=== PATIENT | female | born 1995 | race American Indian/Alaskan Native ===

== ENCOUNTER 2017-01-24 11:18 | Emergency (ER) | payer MEDICAID, OTHER ==
[2017-01-24 11:28] VITALS: BMI 27.4
[2017-01-24 11:40] VITALS: RESP 16
[2017-01-24] MEDS ORDERED: Sodium Chloride 0.9% 1,000 ML IV STA (11:44)
--- NOTE | 2017-01-24 11:53 | ED PDOC ---
Arrival/HPI - General Historian: Patient - History of Present Illness Time/Duration: 4-6 hours Symptom Onset: Sudden Symptom Course: Worsening Quality: Other (soreness) Severity Level: 9 Activities at Onset: Eating <Octavio Rodriguez - Last Filed: 01/24/17 12:53> <Brad Burgess DO - Last Filed: 01/24/17 19:06> - General Chief Complaint: GI Problem Time Seen by Provider: 01/24/17 11:20 - History of Present Illness Narrative History of Present Illness (Text): 01/24/17 11:49 This is a 22 yo female, [id number], last menstrual period sometime in November, with no significant past medical or surgical hx, presenting to ER with chief complaint of abdominal pain. Patient found out she was roughly 2 weeks ago. Patient has been vomiting for about 3 days now. Patient woke this morning about 730 am and vomited 6 times. It was yellowish in appearance, non bloody, non bilious. Shortly after, patient began experiencing diffuse abdominal pain. Describes sensation as "soreness." Never happened before. 9/10 in severity, getting worse, so decided to come to Emergency room Denies fevers, chills, vaginal symptoms, urinary symptoms. Denies constipation and diarrhea. Has had decreased intake past few days. Does report some dizziness following the vomiting 01/24/17 12:53 (Octavio Rodriguez) Past Medical History - Provider Review Nursing Documentation Reviewed: Yes - Travel History Have you recently traveled outside [place] w/in the past 3 mons?: No - Past History Past History: No Previous - Infectious Disease Hx of Infectious Diseases: None - Tetanus Immunization Tetanus Immunization: Unknown - Reproductive Menopause: No - Past Medical History Past Medical History: No Previous - Psychiatric Hx Substance Use: No - Anesthesia Hx Anesthesia: No - Suicidal Assessment Feels Threatened In Home Enviroment: No <Octavio Rodriguez - Last Filed: 01/24/17 12:53> Family/Social History - Physician Review Nursing Documentation Reviewed: Yes Family/Social History: No Known Family HX Smoking Status: Former Smoker Hx Alcohol Use: No Hx Substance Use: No <Octavio Rodriguez - Last Filed: 01/24/17 12:53> Allergies/Home Meds <Octavio Rodriguez - Last Filed: 01/24/17 12:53> <Jenifer ROSSBrad - Last Filed: 01/24/17 19:06> Allergies/Adverse Reactions: Allergies strawberry Allergy (Verified 05/11/15 00:21) RASH Home Medications: Home Meds Medication Instructions Recorded Confirmed No Known Home Med 01/24/17 01/24/17 Review of Systems - Physician Review All systems were reviewed & negative as marked: Yes - Review of Systems Constitutional: absent: Fevers, Night Sweats Respiratory: absent: Cough, Wheezing Cardiovascular: absent: Chest Pain, Palpitations Gastrointestinal: Abdominal Pain, Nausea, Vomiting. absent: Constipation, Diarrhea Genitourinary Female: absent: Dysuria, Frequency, Hematuria, Vaginal Bleeding Skin: absent: Rash, Pruritis Neurological: Dizziness. absent: Headache Psychiatric: absent: Anxiety, Depression <Octavio Rodriguez - Last Filed: 01/24/17 12:53> Physical Exam Vital Signs Reviewed: Yes - Systems Exam Head: Present: Atraumatic, Normocephalic Extroacular Muscles: Present: EOMI Neck: Present: Normal Range of Motion Respiratory/Chest: Present: Clear to Auscultation. No: Accessory Muscle Use Cardiovascular: Present: Normal S1, S2 Abdomen: No: Tenderness, Peritoneal Signs Upper Extremity: Present: Normal Inspection Lower Extremity: Present: Normal Inspection Neurological: Present: CN II-XII Intact, Speech Normal Skin: Present: Warm, Dry Psychiatric: Present: Alert, Oriented x 3, Normal Insight, Normal Concentration <Octavio Rodriguez - Last Filed: 01/24/17 12:53> Vital Signs Temp Pulse Resp BP Pulse Ox 01/24/17 15:19 98.0 F 68 16 141/71 99 01/24/17 11:35 97.9 F 80 16 100 - Lab Interpretations Lab Results: 01/24/17 12:20 01/24/17 12:20 Lab Results 01/24/17 14:40: Beta HCG, Quant [id number] H 01/24/17 12:35: Urine Color Yellow, Urine Appearance Sl cloudy, Urine pH 6.0, Ur Specific [place] 1.015, Urine Protein Trace H, Urine Glucose (UA) Negative, Urine Ketones >=80, Urine Blood Negative, Urine Nitrate Negative, Urine Bilirubin Negative, Urine Urobilinogen 0.2, Ur Leukocyte Esterase Small H, Urine RBC Negative, Urine WBC 1 - 3, Ur Epithelial Cells 6 - 8, Urine Bacteria Few, Urine Other Mucus 01/24/17 12:20: Sodium 135, Potassium 4.0, Chloride 100, Carbon Dioxide 23, Anion Gap 16, BUN 9, Creatinine 0.7, Est GFR ( Amer) > 60, Est GFR (Non- Af Amer) > 60, Random Glucose 84, Calcium 10.4, Total Bilirubin 1.4 H, AST 21, ALT 36, Alkaline Phosphatase 65, Total Protein 9.0 H, Albumin 4.5, Globulin 4.5 , Albumin/Globulin Ratio 1.0 L, Lipase 216 01/24/17 12:20: WBC 5.8 D, RBC 4.56, Hgb 13.0, Hct 37.6, MCV 82.5, MCH 28.5, MCHC 34.6, RDW 14.3, Plt Count 319, MPV 9.5, Gran % 73.9 H, Lymph % (Auto) 20.7 L, [place] % (Auto) 5.2, Eos % (Auto) 0.2 L, Baso % (Auto) 0.0, Gran # 4.29, Lymph # 1.2, [place] # 0.3, Eos # 0.0, Baso # 0.00 - RAD Interpretation Radiology Orders: 01/24/17 11:45 OB TRANSVAGINAL [US] Stat 01/24/17 11:46 ABDOMEN COMPLETE [US] Stat - Medication Orders Current Medication Orders: Discontinued Medications Sodium Chloride (Sodium Chloride 0.9%) 1,000 mls @ 1,000 mls/hr IV .Q1H STA Stop: 01/24/17 12:43 Last Admin: 01/24/17 12:17 Dose: 1,000 mls/hr eMAR Start Stop Document 01/24/17 12:17 RG (Rec: 01/24/17 12:17 RG [facility] [id number]) Intravenous Solution Start Date 01/24/17 Start Time 12:17 Ondansetron HCl (Zofran Inj) 4 mg IVP STAT STA Stop: 01/24/17 12:17 Last Admin: 01/24/17 12:32 Dose: 4 mg IVP Administration Document 01/24/17 12:32 RG (Rec: 01/24/17 12:32 RG [facility] [id number] Charges for Administration # of IVP Administrations 1 - PA / [facility] / Resident Statement / has reviewed & agrees with the documentation as recorded. MARY has examined the patient and agrees with the treatment plan. <Brad Burgess DO - Last Filed: 01/24/17 19:06> Disposition/Present on Arrival - Present on Arrival History of DVT/PE: No History of Uncontrolled Diabetes: No Urinary Catheter: No History of Decub. Ulcer: No History Surgical Site Infection Following: None <Octavio Rodriguez - Last Filed: 01/24/17 12:53> - Present on Arrival Any Indicators Present on Arrival: No - Disposition Have Diagnosis and Disposition been Completed?: Yes Disposition Time: 14:00 <Brad Burgess DO - Last Filed: 01/24/17 19:06> - Disposition Diagnosis: 10 weeks gestation of Disposition: HOME/ ROUTINE Condition: GOOD Discharge Instructions (ExitCare): at 7 to 10 Weeks (ED) Additional Instructions: Thank you for letting us take care of you today. The emergency medical care you received today was directed at your acute symptoms. If you were prescribed any medication, please fill it and take as directed. It may take several days for your symptoms to resolve. Return to the Emergency Department if your symptoms worsen, do not improve, or if you have any other problems. Please contact your doctor or call one of the physicians/clinics you have been referred to that are listed on the Patient Visit Information form that is included in your discharge packet. Bring any paperwork you were given at discharge with you along with any medications you are taking to your follow up visit. Our treatment cannot replace ongoing medical care by a primary care provider (PCP) outside of the emergency department. Thank you for allowing the [facility] team to be part of your care today. Follow up with your [facility] doctor in 5-7 days for re-evaluation and further management. Referrals: PCP,NO [Primary Care Provider] - Follow up with primary
[2017-01-24 12:28] LABS: EOS % 0.2 % (1.5-5.0); GRAN # 4.29 (1.4-6.5); GRAN % 73.9 % (50.0-68.0); HEMATOCRIT 37.6 % (36.0-48.0); LYMPH # 1.2 (1.2-3.4); LYMPH % 20.7 % (22.0-35.0); MEAN CELL VOLUME 82.5 fl (80.0-105.0); MEAN CORPUSCULAR HEMOGLOBIN 28.5 pg (25.0-35.0); MEAN CORPUSCULAR HGB CONC 34.6 g/dl (31.0-37.0); MEAN PLATELET VOLUME 9.5 fl (7.0-11.0); MONO # 0.3 (0.1-0.6); MONO % 5.2 % (1.0-6.0); RED CELL DISTRIBUTION WIDTH 14.3 % (11.5-14.5); WHITE BLOOD COUNT 5.8 10^3/ul (4.5-11.0)
[2017-01-24 12:38] LABS: ALKALINE PHOSPHATASE 65 U/L (38-126); ALT/SGPT 36 U/L (7-56); AST/SGOT 21 U/L (14-36); BILIRUBIN,TOTAL 1.4 mg/dL (0.2-1.3); BLOOD UREA NITROGEN 9 mg/dL (7-21); CALCIUM 10.4 mg/dL (8.4-10.5); CARBON DIOXIDE 23 mmol/L (21-33); CHLORIDE 100 mmol/L (98-107); GFR AFRICAN-AMERICAN > 60; GLUCOSE,RANDOM 84 mg/dL (70-110); LIPASE 216 U/L (23-300); SODIUM 135 mmol/L (132-148)
[2017-01-24 13:30] LABS: URINE BILIRUBIN NEGATIVE (NEGATIVE); URINE BLOOD NEGATIVE (NEGATIVE); URINE GLUCOSE (UA) NEGATIVE (NEGATIVE); URINE KETONE >=80 mg/dL (NEGATIVE); URINE LEUKOCYTE ESTERASE SMALL Leu/uL (NEGATIVE); URINE PROTEIN TRACE mg/dL (<30 mg/dL); URINE UROBILINOGEN 0.2 E.U./dL (<1 E.U./dL)
[2017-01-24 13:33] LABS: URINE APPEARANCE SL CLOUDY (CLEAR); URINE COLOR YELLOW (YELLOW)
[2017-01-24 13:55] LABS: URINE BACTERIA FEW (NEG); URINE RBC NEGATIVE /hpf (0-2)
--- NOTE | 2017-01-24 14:11 | US ---
HISTORY: diffuse abdominal pain COMPARISON: None. TECHNIQUE: Sonographic evaluation of the abdomen. FINDINGS: LIVER: Measures 14.7 cm. Normal echogenicity of the liver parenchyma. No mass. No intrahepatic bile duct dilatation. GALLBLADDER: Unremarkable. No gallstones. COMMON BILE DUCT: Measures 5.0 mm. No stones. No dilatation. PANCREAS: Pancreas head is obscured by overlying duodenal gas with remainder unremarkable appearing. RIGHT KIDNEY: Measures 9.6cm. Normal echogenicity. No calculus, mass, or hydronephrosis. LEFT KIDNEY: Measures 8.9cm. Normal echogenicity. No calculus, mass, or hydronephrosis. Limitations on imaging the left kidney are due to body habitus. SPLEEN: Normal in size and contour. No mass. AORTA: No aneurysmal dilatation. IVC: Unremarkable. OTHER FINDINGS: None. IMPRESSION: The head of the pancreas is obscured by overlying duodenal gas with remainder unremarkable diffusely. Further, imaging of the left kidney is somewhat compromised by body habitus. No definitive pathology is appreciated otherwise.
--- NOTE | 2017-01-24 14:15 | US ---
HISTORY: diffuse abdominal pain COMPARISON: None available. TECHNIQUE: Transabdominal and transvaginal pelvic ultrasound was performed with longitudinal and transverse images submitted for interpretation. FINDINGS: Last menstrual period is unknown. UTERUS: Measures 9.1 x 7.9 x 8.0 cm. The uterus is mildly enlarged appearing anteverted with no discrete myometrial lesion appreciated. Intrauterine gestation is identified as discussed below. ENDOMETRIUM: Within the endometrial cavity is a gestational sac with pole, and attic membrane and yolk sac identified. cardiac activity is identified at 172 beats per minute indicating viability. Mean crown-rump length measurement is 3.4 cm corresponding to an average ultrasonic age of 10 weeks 2 days. Yolk sac measures 0.4 cm inner lumen. The decidual reaction appears diffusely unremarkable without definitive hemorrhage appreciated related. CERVIX: No cervical abnormality identified. RIGHT OVARY: Measures 3.0 x 1.9 x 3.1 cm. No solid mass. Normal flow. LEFT OVARY: Measures 2.4 x 2.1 x 2.3 cm. No solid mass. Normal flow. FREE FLUID: No significant free fluid noted. OTHER FINDINGS: None. IMPRESSION: Single viable intrauterine gestation is identified with an average ultrasonic age of 10 weeks 2 days and cardiac activity registering 172 beats per minute. No definitive hemorrhage related to the at this time. No direct ultrasound sign of ovarian torsion appreciable.
[2017-01-24 15:21] VITALS: BP 141/71; PULSE 68; TEMP 98; O2SAT 99
== END 2017-01-24 15:22 | disposition home or self-care (01) ==
LOC: ED 11:18
DX: O26.891 Other specified pregnancy related conditions, first trimester (principal); Z3A.10 10 weeks gestation of pregnancy
CPT/HCPCS: 76700; 76817; 80053; 81001; 83690; 84702; 85025; 87086; 96374; 99285; J2405; J7040